=== PATIENT | male | born 1995 | race Caucasian/White ===

== ENCOUNTER 2016-10-19 18:51 | Emergency (ER) | payer OTHER, BC ==
--- NOTE | 2016-10-19 20:08 | DIAGNOSTIC IMAGING REPORT ---
PROCEDURE: CT CERVICAL SPINE W/O CONTRAST INDICATION: TRAUMA/INJURY TECHNIQUE: Axial CT images were obtained through the cervical spine. Coronal and sagittal reformations were created. No comparison. COMPARISON: None. FINDINGS: The craniocervical junction is intact. The cervical vertebral bodies are normal in height without evidence of fracture. The alignment and disk spacing is normal. The central canal is patent. No spinal stenosis or neural foraminal narrowing. No prevertebral or paravertebral soft-tissue swelling or mass. Patent airway and normal lung apices. IMPRESSION: 1. Normal CT of the cervical spine without evidence of acute trauma. 2. Discussed with Dr. Singh in the emergency room. All CT scans at this facility use dose modulation, iterative reconstruction, and/or weight-based dosing when appropriate to reduce radiation dose to as low as reasonably achievable.
--- NOTE | 2016-10-19 20:09 | DIAGNOSTIC IMAGING REPORT ---
PROCEDURE: CT HEAD WITHOUT CONTRAST INDICATION: TRAUMA/INJURY TECHNIQUE: Axial CT images were acquired through the head. Coronal and sagittal reformations were created. COMPARISON: None. FINDINGS: No intracranial hemorrhage or extraaxial fluid collections. Ventricles are normal in size, shape and position. There is no mass, mass effect or midline shift. The mann-white matter differentiation is normal. There is no edema. The calvarium is intact. The paranasal sinuses and mastoid air cells are normally aerated. The extracranial soft tissues and orbits are normal. IMPRESSION: 1. No CT evidence of acute intracranial process. 2. Findings discussed with Dr. Singh at [address] scans at this facility use dose modulation, iterative reconstruction, and/or weight-based dosing when appropriate to reduce radiation dose to as low as reasonably achievable.
--- NOTE | 2016-10-19 21:13 | ED NURSING NOTES ---
Clinical Report - Nurses [facility] [place] [address] 10/19/2016 18:52 Patient: DORA HATFIELD TRIAGE Triage time 18:50. Acuity: LEVEL 3. Chief Complaint: ([place]) and INTOXICATION. --18:59 Katelyn Forrester R.N. 18:56 10/19/16. BP: 125/82. HR: 81. RR: 18. O2 saturation: 100% on room air. Temp: 97.2 F (oral). Pain level now: 0/10. --18:59 Kaetlyn Forrester R.N. Chief Complaint: (Pt drank about a fifth of liquor today). --19:04 Katelyn Forrester R.N. Weight: 68 kg estimated. Height/Length: 72 inches Per Patient. BMI: 20.3. --19:05 Katelyn Forrester R.N. Medications Albuterol Sulfate Inhalation 2 puffs, as needed. EpiPen Intramuscular, as needed. --18:57 Katelyn Forrester R.N. Allergies Ambien. Definite Severe (Blocked his thought processes) Onions. Peanut-derived. --18:57 Katelyn Forrester R.N. History Arrived by private vehicle. Historian: patient. Accompanied by (EMS). --18:59 Katelyn Forrester R.N. SOCIAL HX: Former smoker. Occasional alcohol use. --19:04 Katelyn Forrester R.N. SOCIAL HX: History of drug use: marijuana. (meth in past). FALL RISK ASSESSMENT: Fall risk assessment completed. No fall risk identified. --19:06 Katelyn Forrester R.N. PROBLEMS: Anxiety Reaction. Allergic Reaction. Pneumonia. URI. Laceration. ADHD - Attention Deficit Hyperactivity Disorder. Asthma. --18:59 Katelyn Forrester R.N. ADDITIONAL SURGERIES: Tympanostomy Tubes. --19:00 Katelyn Forrester R.N. Interventions ID band on patient. To room. --18:59 Katelyn Forrester R.N. PHYSICAL ASSESSMENT 19:07 10/19/16. GENERAL / NEURO / PSYCH: Altered mental status: lethargic. (cooperative for the most part). --19:07 Katelyn Forrester R.N. NURSING PROGRESS NOTES 19:10/19/16. Patient identifiers checked. Call light placed in reach. Bed placed in lowest position. Patient ready for evaluation. --19:08 Katelyn Forrester R.N. 19:11 10/19/2016 Site #1 started via IV in the left antecubital space with an 20g angiocath, with aseptic technique and good blood return; one attempt. Blood drawn: rainbow set. Labeled in the presence of the patient and sent to the lab. Saline lock flushed with 10 mL saline (started by Radha Bullock). --19:12 Katelyn Forrester R.N. 19:13 10/19/16. Care transferred and report given (to Radha). --19:13 Katelyn Forrester R.N. Patient transported to radiology and CT by stretcher with tech. --19:13 Katelyn Forrester R.N. 19:08 late entry -. ( Hard C-collar applied.). --19:18 Radha Mcclure R.N. 19:35 10/19/2016 Site #2 started via IV in the right antecubital space with an 20g angiocath, with aseptic technique and good blood return; one attempt. Blood drawn. Labeled in the presence of the patient and sent to the lab. --19:35 Radha Mcclure R.N. 19:35 10/19/2016 Started bag #1 1000 mL IV Fluids IV NS (Saline); at 1000 mL/hr over 1 hour(s) via site #1. Allergies verified and confirmed 5 rights. IV patency established. IV site checked: no pain, redness, or swelling. IV flushed thoroughly pre- and post-medication administration. --19:35 Radha Mcclure R.N. 19:36 10/19/2016 Started bag #2 1000 mL IV Fluids IV NS (Saline); at 1000 mL/hr over 1 hour(s) via site #2. Allergies verified and confirmed 5 rights. IV patency established. IV site checked: no pain, redness, or swelling. IV flushed thoroughly pre- and post-medication administration. --19:36 Radha Mcclure R.N. 19:43 10/19/16. BP: 111/83. HR: 78. RR: 20. O2 saturation: 100% on room air. --19:44 Radha Mcclure R.N. 20:24 10/19/2016 IV Fluids IV NS Discontinued: bag #1 infused. Total amount infused: 1000 mL. IV patency established. IV site checked: no pain, redness, or swelling. IV flushed thoroughly. --20:25 Radha Mcclure R.N. 20:25 10/19/2016 IV Fluids IV NS Discontinued: bag #2 infused. Total amount infused: 1000 mL. IV patency established. IV site checked: no pain, redness, or swelling. IV flushed thoroughly. --20:25 Radha Mcclure R.N. 20:34 10/19/2016 Started bag #3 1000 mL IV Fluids IV NS (Saline); at 1000 mL/hr over 1 hour(s) via site #1. Allergies verified and confirmed 5 rights. IV patency established. IV site checked: no pain, redness, or swelling. IV flushed thoroughly pre- and post-medication administration. --20:34 Radha Mcclure R.N. 20:34 10/19/16. ( C-collar removed per ED MD.). --20:34 Radha Mcclure R.N. 20:35 10/19/2016 Started bag #4 1000 mL IV Fluids IV NS (Saline); at 1000 mL/hr over 1 hour(s) via site #2. Allergies verified and confirmed 5 rights. IV patency established. IV site checked: no pain, redness, or swelling. IV flushed thoroughly pre- and post-medication administration (bags 3 and 4 started per ED MD verbal order). --20:35 Radha Mcclure R.N. 20:40 10/19/16. ( Pt rouses to verbal stimuli. Pt informed of need for urine sample and urinal placed with patient. Pt's girlfriend at bedside.). --20:40 Radha Mcclure R.N. 21:52 10/19/2016 IV Fluids IV NS Discontinued: bag #3 infused upon discharge. Total amount infused: 1000 mL. IV patency established. IV site checked: no pain, redness, or swelling. IV flushed thoroughly. --21:52 Radha Mcclure R.N. 21:53 10/19/2016 Site #1 removed upon discharge. Catheter intact. Manual pressure and bandage applied. --21:53 Radha Mcclure R.N. 21:53 10/19/2016 Site #2 removed upon discharge. Catheter intact. Manual pressure and bandage applied. --21:53 Radha Mcclure R.N. 21:53 10/19/2016 IV Fluids IV NS Discontinued: bag #4 infused upon discharge. Total amount infused: 1000 mL. IV patency established. IV site checked: no pain, redness, or swelling. IV flushed thoroughly. --21:53 Radha Mcclure R.N. Checked patient name and birthdate: patient confirmed urine collected with return of yellow-colored clear urine; sample sent to lab for urinalysis. Specimen labeled in the presence of the patient. --21:53 Radha Mcclure R.N. DISPOSITION / DISCHARGE 21:40 10/19/16. BP: 111/57. HR: 80. RR: 18. O2 saturation: 100% on room air. Pain level now: 0/10. --21:41 Radha Mcclure R.N. Condition at departure: improved and stable. No learning barriers present. Discharge instructions provided and reviewed with chain carrier and the patient. Reviewed medication(s) side effects, precautions and dosing information. Prescription(s) given to the patient. Patient verbalized understanding. Written instructions provided in Sinhala. The patient was discharged by the physician. He was discharged home and accompanied by chain carrier. He left the Emergency Department ambulatory and via private vehicle. Chemicals Distiller driving. --22:59 Radha Mcclure R.N. Locked/Released at 10/19/2016 23:00 by Radha Mcclure R.N.
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
--- NOTE | 2016-10-19 21:13 | ED ORDER SUMMARY ---
..... Patient: DORA HATFIELD OrderSheet [facility] VisitID: [id number] [place] [address] 21y, M Registration Date/Time: 10/19/2016 ORDER SHEET Weight: 68.0 kg (estimated) Allergies: Ambien, Onions, Peanut-derived GENERAL ORDERS: CT Head wo Cont Urgent (18:59 10/19/2016 Frederick Singletary) (Ack 19:01 Priyank) (19:27 [facility]) CT Cervical Spine wo Cont Urgent (18:59 10/19/2016 Frederick Singletary) (Ack 19:01 Priyank) (19:27 [facility]) CBC w Diff Urgent (19:00 10/19/2016 Frederick Singletary) (Ack 19:01 Priyank) (19:35 MWinterer R.N.) CMP Urgent (19:00 10/19/2016 Frederick Singletary) (Ack 19:01 Priyank) (19:35 MWinterer R.N.) UA-Culture if indicated Urgent (19:00 10/19/2016 Frederick Singletary) (Ack 19:01 Priyank) (21:49 MWinterer R.N.) Lipase Urgent (19:00 10/19/2016 Frederick Singletary) (Ack 19:01 Priyank) (19:35 MWinterer R.N.) Pulse oximeter (19:00 10/19/2016 Frederick Singletary) (19:11 LSullivan R.N.) C-Collar (19:00 10/19/2016 Frederick Singletary) (19:11 LSullivan R.N.) MEDICATION ORDERS: IV FLUIDS: IV NS : initial bolus 2L over 1 hour, then none - for X1 (NOW) (18:59 10/19/2016 Frederick Singletary) (Ack 19:17 MWinterer R.N.) (19:35 MWinterer R.N.) ORDER SHEET NOTES: [Electronically signed by Radha Mcclure R.N. (23:00 10/19/2016)] [Electronically signed by Dhaval Singh Dr. (06:48 10/21/2016)] [Electronically locked/signed by Radha Mcclure R.N. (23:00 10/19/2016)]
--- NOTE | 2016-10-19 21:13 | ED ORDER SUMMARY ---
..... Patient: DORA HATFIELD OrderSheet [facility] VisitID: [id number] [place] [address] 21y, M Registration Date/Time: 10/19/2016 ORDER SHEET Weight: 68.0 kg (estimated) Allergies: Ambien, Onions, Peanut-derived GENERAL ORDERS: CT Head wo Cont Urgent (18:59 10/19/2016 Frederick Singletary) (Ack 19:01 Priyank) (19:27 [facility]) CT Cervical Spine wo Cont Urgent (18:59 10/19/2016 Frederick Singletary) (Ack 19:01 Priyank) (19:27 [facility]) CBC w Diff Urgent (19:00 10/19/2016 Frederick Singletary) (Ack 19:01 Priyank) (19:35 MWinterer R.N.) CMP Urgent (19:00 10/19/2016 Frederick Singletary) (Ack 19:01 Priyank) (19:35 MWinterer R.N.) UA-Culture if indicated Urgent (19:00 10/19/2016 Frederick Singletary) (Ack 19:01 Priyank) (21:49 MWinterer R.N.) Lipase Urgent (19:00 10/19/2016 Frederick Singletary) (Ack 19:01 Priyank) (19:35 MWinterer R.N.) Pulse oximeter (19:00 10/19/2016 Frederick Singletary) (19:11 LSullivan R.N.) C-Collar (19:00 10/19/2016 Frederick Singletary) (19:11 LSullivan R.N.) MEDICATION ORDERS: IV FLUIDS: IV NS : initial bolus 2L over 1 hour, then none - for X1 (NOW) (18:59 10/19/2016 Frederick Singletary) (Ack 19:17 MWinterer R.N.) (19:35 MWinterer R.N.) ORDER SHEET NOTES: [Electronically signed by Radha Mcclure R.N. (23:00 10/19/2016)] [Electronically signed by Dhaval Singh Dr. (06:48 10/21/2016)] [Electronically locked/signed by Radha Mcclure R.N. (23:00 10/19/2016)]
--- NOTE | 2016-10-21 06:48 | ED MAR SUMMARY ---
..... Medication Administration Record [facility] [address] [place] [address] Patient: DORA HATFIELD Visit ID: [id number] 21y, M Weight: 68.0 kg Height/Length: 72 in BMI: 20.3 ALLERGIES: Ambien, Onions, Peanut-derived Start 19:35 10/19/2016 Radha Mcclure R.N., Stop 20:24 10/19/2016 Radha Mcclure R.N. Medication Administered: IV NS (SALINE), Dose: IV Fluids over 1 hour(s), Rate: 1000 mL/hr, Dispensed: 1000 mL bag, Site: #1 left AC. Medication Ordered: IV NS : initial bolus 2L over 1 hour, then none - for X1 (NOW). Start 19:36 10/19/2016 Radha Mcclure R.N., Stop 20:25 10/19/2016 Radha Mcclure R.N. Medication Administered: IV NS (SALINE), Dose: IV Fluids over 1 hour(s), Rate: 1000 mL/hr, Dispensed: 1000 mL bag, Site: #2 right AC. Medication Ordered: IV NS : initial bolus 2L over 1 hour, then none - for X1 (NOW). Start 20:34 10/19/2016 Radha Mcclure R.N., Stop 21:52 10/19/2016 Radha Mcclure R.N. Medication Administered: IV NS (SALINE), Dose: IV Fluids over 1 hour(s), Rate: 1000 mL/hr, Dispensed: 1000 mL bag, Site: #1 left AC. Medication Ordered: IV NS : initial bolus 2L over 1 hour, then none - for X1 (NOW). Start 20:35 10/19/2016 Radha Mcclure R.N., Stop 21:53 10/19/2016 Radha Mcclure R.N. Medication Administered: IV NS (SALINE), Dose: IV Fluids over 1 hour(s), Rate: 1000 mL/hr, Dispensed: 1000 mL bag, Site: #2 right AC. Medication Ordered: IV NS : initial bolus 2L over 1 hour, then none - for X1 (NOW).
--- NOTE | 2016-10-21 06:48 | ED MAR SUMMARY ---
..... Medication Administration Record [facility] [address] [place] [address] Patient: DORA HATFIELD Visit ID: [id number] 21y, M Weight: 68.0 kg Height/Length: 72 in BMI: 20.3 ALLERGIES: Ambien, Onions, Peanut-derived Start 19:35 10/19/2016 Radha Mcclure R.N., Stop 20:24 10/19/2016 Radha Mcclure R.N. Medication Administered: IV NS (SALINE), Dose: IV Fluids over 1 hour(s), Rate: 1000 mL/hr, Dispensed: 1000 mL bag, Site: #1 left AC. Medication Ordered: IV NS : initial bolus 2L over 1 hour, then none - for X1 (NOW). Start 19:36 10/19/2016 Radha Mcclure R.N., Stop 20:25 10/19/2016 Radha Mcclure R.N. Medication Administered: IV NS (SALINE), Dose: IV Fluids over 1 hour(s), Rate: 1000 mL/hr, Dispensed: 1000 mL bag, Site: #2 right AC. Medication Ordered: IV NS : initial bolus 2L over 1 hour, then none - for X1 (NOW). Start 20:34 10/19/2016 Radha Mcclure R.N., Stop 21:52 10/19/2016 Radha Mcclure R.N. Medication Administered: IV NS (SALINE), Dose: IV Fluids over 1 hour(s), Rate: 1000 mL/hr, Dispensed: 1000 mL bag, Site: #1 left AC. Medication Ordered: IV NS : initial bolus 2L over 1 hour, then none - for X1 (NOW). Start 20:35 10/19/2016 Radha Mcclure R.N., Stop 21:53 10/19/2016 Radha Mcclure R.N. Medication Administered: IV NS (SALINE), Dose: IV Fluids over 1 hour(s), Rate: 1000 mL/hr, Dispensed: 1000 mL bag, Site: #2 right AC. Medication Ordered: IV NS : initial bolus 2L over 1 hour, then none - for X1 (NOW).
--- NOTE | 2016-10-21 06:48 | ED DISCHARGE INSTRUCTIONS ---
Patient: DORA HATFIELD General Instructions [facility] VisitID: [id number] [place] [address] 21y, M Registration Date/Time: 10/19/2016 10/19/2016 19:43 BP: 111/83. HR: 78. RR: 20. O2 saturation: 100%. Blood pressure normal. Oxygen saturation normal. Acute cervical strain (acute). Alcohol intoxication (acute). Minor closed head injury. Unknown whether a loss of consciousness occurred. INSTRUCTIONS Warnings: GENERAL WARNINGS: Return or contact your physician immediately if your condition worsens or changes unexpectedly, if not improving as expected, or if other problems arise. SPECIFICALLY, return if you develop weakness, numbness, tingling, pain or incontinence. dark or tar colored stool, vomiting blood, dizziness, or other concerns. Your Current Medications: CONTINUE TAKING THE FOLLOWING MEDICATIONS: Albuterol Sulfate Inhalation : 2 puffs, prn. EpiPen Intramuscular : prn. Prescription Medications: Zofran (orally disintegrating tablets) 4 mg: take 1 orally every 8 hours as needed for nausea and vomiting. Dispense ten (10). No refill. Substitution is permissible. Pepcid 20 mg: take 1 orally every 12 hours as needed for indigestion, upset stomach or heartburn. Dispense thirty (30). No refills. Substitution is permissible. Follow-up: Return to the emergency department as needed. Follow up with your doctor in three days. Reason for referral: recheck today's concerns. Summary of care provided to patient via paper. Screening today revealed the patient's blood pressure to be in the normal range. The patient should follow up with a primary care provider for blood pressure management. Understanding of the discharge instructions verbalized by patient. Discharge instructions reviewed (friend). ADDITIONAL INFORMATION Neck Sprain Or Strain A sudden force that causes turning or bending of the neck (such as in a car accident) can stretch or tear muscles (strain) and ligaments (sprain) and cause neck pain. Sometimes neck pain occurs after a simple awkward movement. In either case, muscle spasm is commonly present and contributes to the pain. Unless you had a forceful physical injury (for example, a car accident or fall), X-rays are usually not ordered for the initial evaluation of neck pain. If pain continues and dose not respond to medical treatment, X-rays and other tests may be performed at a later time. Home care The following guidelines will help you care for your injury at home: You may feel more soreness and spasm the first few days after the injury. Reduce your activity level until symptoms begin to improve. When lying down, use a comfortable pillow that supports the head and keeps the spine in a neutral position. The position of the head should not be tilted forward or backward. Use ice packs (ice in a plastic bag, wrapped in a towel) to treat acute pain. Apply for 20 minutes every 24 hours during the first two days. Then, begin local heat (hot shower, hot bath or heating pad) andmassageto reduce muscle spasm. Some patients feel best alternating hot and cold treatments, or just staying with one method only. Do what feels the best to you and gives the most relief. You may use acetaminophen or ibuprofen to control pain, unless another pain medicine was prescribed.If you have chronic liver or kidney disease or ever had a stomach ulcer or GI bleeding, talk with your doctor before using these medicines. Follow-up care Follow up with your physician or this facility if your symptoms do not show signs of improvement. Physical therapy may be needed. If you had X-rays today, they didnt show any broken bones, breaks, or fractures. Sometimes fractures dont show up on the first X-ray. Bruises and sprains can sometimes hurt as much as a fracture. These injuries can take time to heal completely. If your symptoms dont improve or they get worse, talk with your doctor. You may need a repeat X-ray. When to seek medical care Get prompt medical attention if any of the following occur: Pain becomes worse or spreads into your arms Weakness or numbness in one or both arms Alcohol Intoxication Alcohol intoxication occurs when you drink alcohol faster than your liver can remove it from your system. Alcohol intoxication affects your judgment and coordination. Very high blood alcohol levels can cause coma, very slow breathing and even . If you drink alcohol every day, this may gradually cause permanent damage to your liver, brain, heart, pancreas and other organs. Alcohol use during may cause permanent damage to the growing baby. Home Care: Do not drink any more alcohol. DO NOT DRIVE until all effects of the alcohol have worn off. Get lots of rest over the next few days. Drink plenty of water and other non-alcoholic liquids. Try to eat regular meals. If you have been drinking heavily on a daily basis, you may go through alcohol withdrawl. This is also called the shakes or DTs. The usual symptoms last 3 to 4 days and may include nervousness, shakiness, nausea, sweating or sleeplessness. During this time, it is best that you stay with family or friends who can help and support you. You can also admit yourself to a residential detox program. If your symptoms are severe, contact your doctor for medicines to help. Follow Up: If alcohol is causing a problem in your life, these and other organizations can help you: Alcoholics Anonymous offers support through a self-help fellowship. There are no dues or fees. See the Yellow Pages and call for time and place of meetings. www.aa.org Ba offers support to families of alcohol users. 837.719.3791 www.al-anon.org [employer] Alcohol[employer] And [employer] Dependence 765-458-6483 www.ncadd.org There are also inpatient or residential alcohol detox programs. Check the Internet or phonebook Yellow Pages under Drug Abuse & Treatment Centers. Get Prompt Medical Attention if any of the following occur: there) Concussion (No Wake-Up) A concussion happens when you hit your head with enough force to shake up the brain. This may cause you to lose consciousness be "knocked out" - but not always. Depending on how hard you hit your head, it will take from a few hours up to a few days to get better. Sometimes symptoms may last a few months or longer. This is called post-concussion syndrome. At first, you may have a headache, nausea, vomiting, or dizziness. You may also have problems concentrating or remembering things. This is normal. Symptoms should get better as the hours and days go by. Symptoms that get worse could be a sign of a more serious injury. This might be a bruise or bleeding in the brain. Thats why its important to watch for the warning signs listed below. Home care Follow these tips to help care for yourself at home: During the next day (24 hours) someone must stay with you to check for the signs below. If your face or scalp swells, apply an ice pack for 20 minutes every 1 to 2 hours. Do this until the swelling starts to go down. You can make an ice pack by putting ice cubes in a plastic bag and wrapping the bag in a towel. for 20 minutes every 1-2 hours until the swelling starts to go down. You may use acetaminophen to control pain, unless another pain medicine was prescribed. If you have chronic liver or kidney disease, talk with your doctor before using these medicines. Also talk with your doctor if you ever had a stomach ulcer or GI bleeding. For the next 24 hours: Dont drink alcohol or take sedatives or medicines that make you sleepy. Dont drive or operate machinery. Avoid doing anything strenuous. Dont lift or strain. Dont return to sports or any activity that could cause you to hit your head until all symptoms are gone and you have been cleared by your doctor. A second head injury before fully recovering from the first one can lead to serious brain injury. Follow-up care Follow up with your doctor in 1 week, or as directed. Note: A radiologist will review any X-rays or CT scans that were taken. You will be told of any new findings that may affect your care. When to seek medical care Get prompt medical attention if any of these occur: Repeated vomiting Headache or dizziness that is severe or gets worse Unusual drowsiness, or unable to wake up as usual Confusion or change in behavior or speech, or memory loss Blurred vision Convulsion (seizure) Swelling on the scalp or face that gets worse Redness, warmth, or pus from the swollen area Fluid draining from or bleeding from the nose or ears Ondansetron Oral disintegrating tablet What is this medicine? ONDANSETRON (on QUAN se justin) is used to treat nausea and vomiting caused by chemotherapy. It is also used to prevent or treat nausea and vomiting after surgery. How should I use this medicine? These tablets are made to dissolve in the mouth. Do not try to push the tablet through the foil backing. With dry hands, peel away the foil backing and gently remove the tablet. Place the tablet in the mouth and allow it to dissolve, then swallow. While you may take these tablets with water, it is not necessary to do so. Talk to your x ray service technician regarding the use of this medicine in children. Special care may be needed. What side effects may I notice from receiving this medicine? Side effects that you should report to your doctor or health pet care worker as soon as possible: allergic reactions like skin rash, itching or hives, swelling of the face, lips, or tongue breathing problems dizziness fast or irregular heartbeat feeling faint or lightheaded, falls fever and chills swelling of the hands and feet tightness in the chest Side effects that usually do not require medical attention (report to your doctor or health pet care worker if they continue or are bothersome): constipation or diarrhea headache What may interact with this medicine? Do not take this medicine with any of the following medications: -apomorphine -cisapride -dofetilide -dronedarone -pimozide -thioridazine -ziprasidone This medicine may also interact with the following medications: -carbamazepine -phenytoin -rifampicin -tramadol -other medicines that prolong the QT interval (cause an abnormal heart rhythm) What if I miss a dose? If you miss a dose, take it as soon as you can. If it is almost time for your next dose, take only that dose. Do not take double or extra doses. Where should I keep my medicine? Keep out of the reach of children. Store between 2 and 30 degrees C (36 and 86 degrees F). Throw away any unused medicine after the expiration date. What should I tell my health care provider before I take this medicine? They need to know if you have any of these conditions: heart disease history of irregular heartbeat liver disease low levels of magnesium or potassium in the blood an unusual or allergic reaction to ondansetron, granisetron, other medicines, foods, dyes, or preservatives or trying to get breast-feeding What should I watch for while using this medicine? Check with your doctor or health pet care worker as soon as you can if you have any sign of an allergic reaction. Famotidine Oral tablet What is this medicine? FAMOTIDINE (fa CLARISSE ti shanita) is a type of antihistamine that blocks the release of stomach acid. It is used to treat stomach or intestinal ulcers. It can also relieve heartburn from acid reflux. How should I use this medicine? Take this medicine by mouth with a glass of water. Follow the directions on the prescription label. If you only take this medicine once a day, take it at bedtime. Take your doses at regular intervals. Do not take your medicine more often than directed. Talk to your x ray service technician regarding the use of this medicine in children. Special care may be needed. What side effects may I notice from receiving this medicine? Side effects that you should report to your doctor or health pet care worker as soon as possible: agitation, nervousness confusion hallucinations skin rash, itching Side effects that usually do not require medical attention (report to your doctor or health pet care worker if they continue or are bothersome): constipation diarrhea dizziness headache What may interact with this medicine? delavirdine itraconazole ketoconazole What if I miss a dose? If you miss a dose, take it as soon as you can. If it is almost time for your next dose, take only that dose. Do not take double or extra doses. Where should I keep my medicine? Keep out of the reach of children. Store at room temperature between 15 and 30 degrees C (59 and 86 degrees F). Do not freeze. Throw away any unused medicine after the expiration date. What should I tell my health care provider before I take this medicine? They need to know if you have any of these conditions: kidney or liver disease trouble swallowing an unusual or allergic reaction to famotidine, other medicines, foods, dyes, or preservatives or trying to get breast-feeding What should I watch for while using this medicine? Tell your doctor or health pet care worker if your condition does not start to get better or if it gets worse. Finish the full course of tablets prescribed, even if you feel better. Do not take with aspirin, ibuprofen or other antiinflammatory medicines. These can make your condition worse. Do not smoke cigarettes or drink alcohol. These cause irritation in your stomach and can increase the time it will take for ulcers to heal. If you get black, tarry stools or vomit up what looks like coffee grounds, call your doctor or health pet care worker at once. You may have a bleeding ulcer. You have been given the following additional information: Neck Sprain/Strain Alcohol Intoxication Concussion, No Wake-Up Ondansetron Oral disintegrating tablet Famotidine Oral tablet (Electronically signed by Dhaval Singh Dr. 10/21/2016 6:48)
--- NOTE | 2016-10-21 06:49 | ED MED RECONCILIATION SUMMARY ---
Patient: DORA HATFIELD Medication Reconciliation Report [facility] VisitID: [id number] [place] [address] 21y, M Registration Date/Time: 10/19/2016 Weight: 68.0 kg Height/Length: 72 in. BMI: 20.3 ALLERGIES: Ambien, Onions, Peanut-derived The patient's Home Medications are listed below: CONTINUE TAKING THE FOLLOWING MEDICATIONS: Albuterol Sulfate Inhalation 2 puffs EpiPen Intramuscular The source(s) of the original Home Medication information: Not obtained. The following Medications were given to the patient in the Emergency Department: IV NS IV Fluids bolus 0, then 1000 mL/hr, administered: 10/19/2016 7:35:00 PM IV NS IV Fluids bolus 0, then 1000 mL/hr, administered: 10/19/2016 7:36:00 PM IV NS IV Fluids bolus 0, then 1000 mL/hr, administered: 10/19/2016 8:34:00 PM IV NS IV Fluids bolus 0, then 1000 mL/hr, administered: 10/19/2016 8:35:00 PM The following Medications were prescribed to the patient: Zofran (orally disintegrating tablets) 4 mg: take 1 orally every 8 hours as needed for nausea and vomiting. Dispense ten (10). No refill. Substitution is permissible. -- Dhaval Singh Dr. Pepcid 20 mg: take 1 orally every 12 hours as needed for indigestion, upset stomach or heartburn. Dispense thirty (30). No refills. Substitution is permissible. -- Dhaval Singh Dr.
--- NOTE | 2016-10-21 06:49 | ED MED RECONCILIATION SUMMARY ---
Patient: DORA HATFIELD Medication Reconciliation Report [facility] VisitID: [id number] [place] [address] 21y, M Registration Date/Time: 10/19/2016 Weight: 68.0 kg Height/Length: 72 in. BMI: 20.3 ALLERGIES: Ambien, Onions, Peanut-derived The patient's Home Medications are listed below: CONTINUE TAKING THE FOLLOWING MEDICATIONS: Albuterol Sulfate Inhalation 2 puffs EpiPen Intramuscular The source(s) of the original Home Medication information: Not obtained. The following Medications were given to the patient in the Emergency Department: IV NS IV Fluids bolus 0, then 1000 mL/hr, administered: 10/19/2016 7:35:00 PM IV NS IV Fluids bolus 0, then 1000 mL/hr, administered: 10/19/2016 7:36:00 PM IV NS IV Fluids bolus 0, then 1000 mL/hr, administered: 10/19/2016 8:34:00 PM IV NS IV Fluids bolus 0, then 1000 mL/hr, administered: 10/19/2016 8:35:00 PM The following Medications were prescribed to the patient: Zofran (orally disintegrating tablets) 4 mg: take 1 orally every 8 hours as needed for nausea and vomiting. Dispense ten (10). No refill. Substitution is permissible. -- Dhaval Singh Dr. Pepcid 20 mg: take 1 orally every 12 hours as needed for indigestion, upset stomach or heartburn. Dispense thirty (30). No refills. Substitution is permissible. -- Dhaval Singh Dr.
== END 2016-10-19 21:50 | disposition home or self-care (01) ==
LOC: ED SRH 18:51
DX: S16.1XXA Strain of muscle, fascia and tendon at neck level, initial encounter (principal); S09.90XA Unspecified injury of head, initial encounter; F10.129 Alcohol abuse with intoxication, unspecified; W51.XXXA Accidental striking against or bumped into by another person, initial encounter; Y93.9 Activity, unspecified; Y92.830 Public park as the place of occurrence of the external cause; Y99.9 Unspecified external cause status
CPT/HCPCS: 90004; 90100; 92235; 95059